=== PATIENT | female | born 1945 | race Caucasian/White ===

== ENCOUNTER 2017-11-25 07:36 | Inpatient (IN) | payer MEDICARE ==
[~2017-11-25] VITALS: Ht 188 cm; Wt 52.3 kg
[~2017-11-25 07:36] MED LIST: ALBU8.5H8 IH; CHOL10002 PO; CHOL2000 PO; PRED50TA PO; VITC500T PO; calcium PO
[2017-11-25] MEDS ORDERED: ipratropium/albuterol 3ml nebule NEB ONE (08:00)
[2017-11-25] MEDS ORDERED: methylPREDNISolone sod succ 125mg/2ml vial IV ONE (08:00)
[2017-11-25] MEDS: magnesium/D5W IVPB 100 ML IV SCH ×2 (08:16→09:18)
[2017-11-25 08:21] LABS: BASOPHILS % (AUTO) 0.1 % (0-1); EOSINOPHILS # (AUTO) 0.3 X10'3 (0-0.9); EOSINOPHILS % (AUTO) 4.9 % (0-6); HEMOGLOBIN 13.4 g/dl (12.0-16.0); LYMPHOCYTES # (AUTO) 0.2 X10'3 (1.1-4.8); LYMPHOCYTES % (AUTO) 3.7 % (21-51); MEAN CORPUSCULAR HEMOGLOBIN 33.3 PG (27.0-31.0); MEAN CORPUSCULAR HGB CONC 34.4 % (33.0-36.5); MEAN CORPUSCULAR VOLUME 96.7 FL (78-98); MEAN PLATELET VOLUME 7.5 FL (7.4-10.4); MONOCYTES # (AUTO) 0.5 X10'3 (0-0.9); NEUTROPHILS # (AUTO) 4.9 X10'3 (1.8-7.7); NEUTROPHILS % (AUTO) 82.3 % (42-75); PLATELET COUNT 207 X10'3 (140-440); RED BLOOD COUNT 4.04 X10'6 (4.20-5.60); RED CELL DISTRIBUTION WIDTH 13.6 % (11.5-14.5); WHITE BLOOD COUNT 5.9 X10'3 (4.5-11.0)
[2017-11-25 08:27] LABS: INR 0.9 INR; PARTIAL THROMBOPLASTIN TIME 32 SECONDS (22-32); PROTHROMBIN TIME 9.8 SECONDS (9.0-12.0)
[2017-11-25 08:40] LABS: ALANINE AMINOTRANSFERASE 26 U/L (12-78); ALBUMIN 3.1 G/DL (3.4-5.0); ALBUMIN/GLOBULIN RATIO 0.8 (1.1-1.5); ALKALINE PHOSPHATASE 66 IU/L (46-116); ANION GAP 6 (8-16); ASPARTATE AMINO TRANSFERASE 23 U/L (10-37); BILIRUBIN,TOTAL 0.7 MG/DL (0.1-1.0); BLOOD UREA NITROGEN 16 MG/DL (7-18); BUN/CREATININE RATIO 15.1 (6.6-38.0); CALCIUM 8.8 MG/DL (8.5-10.1); CHLORIDE 103 MMOL/L (99-107); CREATININE 1.06 MG/DL (0.40-0.90); GLUCOSE 84 MG/DL (70-104); SODIUM 141 MMOL/L (135-145); TOTAL CARBON DIOXIDE 31.6 MMOL/L (24-32); TOTAL PROTEIN 6.8 G/DL (6.4-8.2); eGFR 51 ML/MIN
[2017-11-25] MEDS ORDERED: azithromycin 250mg tablet PO ONE (09:20)
[2017-11-25] MEDS ORDERED: CefTRIAXone 2gm/D5W 50ml 50 ML IV ONE (09:20)
[2017-11-25] MEDS ORDERED: PRED20TA PO (10:27)
[2017-11-25] MEDS ORDERED: LEVO500T2 PO (10:27)
[2017-11-25] MEDS ORDERED: BENZ-16 PO (10:31)
[2017-11-25] MEDS ORDERED: albuterol 2.5 MG/3 ML nebule NEB ONE (11:05)
[2017-11-25] MEDS ORDERED: HYDROcodone/acetaminophen 10/325mg tab PO PRN (12:15)
[2017-11-25] MEDS ORDERED: ondansetron/PF 4mg/2ml inj IV PRN (12:15)
[2017-11-25] MEDS ORDERED: acetaminophen 325mg tablet PO PRN ×2 (12:15)
[2017-11-25] MEDS ORDERED: mag hydrox/Alum hydrox/simeth 30ml oral suspension PO PRN (12:15)
[2017-11-25] MEDS ORDERED: potassium Cl 20 mEq SR tablet PO PRN ×2 (12:15)
[2017-11-25] MEDS ORDERED: ipratropium/albuterol 3ml nebule NEB PRN (12:15)
[2017-11-25] MEDS ORDERED: potassium Cl 40MEQ/NS 500ml 500 ML IV PRN ×2 (12:15)
[2017-11-25] MEDS ORDERED: magnesium hydroxide 30ml (MOM) UD suspension PO PRN (12:15)
[2017-11-25] MEDS ORDERED: magnesium 4gm in 100ml NS 100 ML IV PRN (12:15)
[2017-11-25] MEDS ORDERED: magnesium 2GM in 50ml NS 50 ML IV PRN (12:15)
[2017-11-25] MEDS ORDERED: magnesium/D5W IVPB 100 ML IV PRN (12:30)
[2017-11-25 12:37] LABS: D-DIMER 0.53 MG/L FEU (0-0.50)
[2017-11-25] MEDS ORDERED: TIOT18CA3 IH (12:53)
[2017-11-25] MEDS ORDERED: FLUT1DIS4 INH (12:54)
[2017-11-25] MEDS ORDERED: PRED5TAB PO (12:56)
[2017-11-25] MEDS ORDERED: ALEN70TA48 PO (12:57)
[2017-11-25] MEDS ORDERED: CALC-642 PO (12:58)
[2017-11-25] MEDS ORDERED: MULT1TAB74 PO (12:59)
[2017-11-25] MEDS: methylPREDNISolone sod succ/PF 40mg inj. IV SCH ×2 (15:10→21:15)
[2017-11-25] MEDS ORDERED: non-formulary drug (Alendronate Sodium* (Fosamax*) 1 TABLET) PO SCH (15:45)
[2017-11-25 16:24] VITALS: BP 142/76
[2017-11-25 18:45] VITALS: BP 117/76
[2017-11-25] MEDS: calcium carbonate 500mg chew tablet PO SCH (20:00)
[2017-11-25] MEDS: lactobacillus rhamnosus 10,000 MMU CELLS/CAPSULE PO SCH (21:15)
[2017-11-25 23:15] VITALS: BP 117/72
[2017-11-26] MEDS: methylPREDNISolone sod succ/PF 40mg inj. IV SCH ×4 (02:17→21:16)
[2017-11-26 05:16] LABS: BASOPHILS % (AUTO) 0 % (0-1); EOSINOPHILS % (AUTO) 0 % (0-6); HEMATOCRIT 35.8 % (35.0-45.0); HEMOGLOBIN 12.3 g/dl (12.0-16.0); LYMPHOCYTES # (AUTO) 0.1 X10'3 (1.1-4.8); LYMPHOCYTES % (AUTO) 2.5 % (21-51); MEAN CORPUSCULAR HEMOGLOBIN 33.4 PG (27.0-31.0); MEAN CORPUSCULAR HGB CONC 34.4 % (33.0-36.5); MEAN PLATELET VOLUME 7.8 FL (7.4-10.4); MONOCYTES # (AUTO) 0.3 X10'3 (0-0.9); MONOCYTES % (AUTO) 4.3 % (2-12); NEUTROPHILS # (AUTO) 5.5 X10'3 (1.8-7.7); NEUTROPHILS % (AUTO) 93.2 % (42-75); PLATELET COUNT 225 X10'3 (140-440); RED BLOOD COUNT 3.69 X10'6 (4.20-5.60); RED CELL DISTRIBUTION WIDTH 13.7 % (11.5-14.5); WHITE BLOOD COUNT 5.9 X10'3 (4.5-11.0)
[2017-11-26 05:21] LABS: ALANINE AMINOTRANSFERASE 27 U/L (12-78); ALBUMIN 2.8 G/DL (3.4-5.0); ALBUMIN/GLOBULIN RATIO 0.8 (1.1-1.5); ALKALINE PHOSPHATASE 65 IU/L (46-116); ANION GAP 4 (8-16); ASPARTATE AMINO TRANSFERASE 25 U/L (10-37); BILIRUBIN,TOTAL 0.4 MG/DL (0.1-1.0); BLOOD UREA NITROGEN 22 MG/DL (7-18); BUN/CREATININE RATIO 21.6 (6.6-38.0); CALCIUM 8.9 MG/DL (8.5-10.1); CHLORIDE 103 MMOL/L (99-107); CREATININE 1.02 MG/DL (0.40-0.90); GLUCOSE 136 MG/DL (70-104); MAGNESIUM 2.6 MG/DL (1.5-2.4); POTASSIUM 4.6 MMOL/L (3.5-5.1); SODIUM 142 MMOL/L (135-145); TOTAL CARBON DIOXIDE 34.9 MMOL/L (24-32); TOTAL PROTEIN 6.4 G/DL (6.4-8.2); eGFR 53 ML/MIN
[2017-11-26 07:35] VITALS: BP 132/91
[2017-11-26] MEDS: CefTRIAXone/D5W-Rocephin 1gm 50 ML IV SCH (07:48)
[2017-11-26] MEDS: vitamin D (cholecalciferol) 1,000 unit tablet PO SCH (07:49)
[2017-11-26] MEDS: lactobacillus rhamnosus 10,000 MMU CELLS/CAPSULE PO SCH ×2 (07:49→21:16)
[2017-11-26] MEDS: calcium carbonate 500mg chew tablet PO SCH ×2 (07:50→20:00)
[2017-11-26] MEDS: multivitamins, therapeutics tablet PO SCH (07:50)
[2017-11-26] MEDS: ascorbic acid 500mg tablet PO SCH (07:50)
[2017-11-26] MEDS: enoxaparin 40mg/0.4ml syringe SQ SCH (07:52)
[2017-11-26] MEDS: K and/or MAG REPLACEMENT MC SCH (07:53)
[2017-11-26 11:59] VITALS: BP 128/74
[2017-11-26] MEDS ORDERED: LORazepam 0.5 MG tablet PO PRN (16:35)
[2017-11-26] MEDS ORDERED: AZAT50TA35 PO (17:52)
[2017-11-26 18:30] VITALS: BP 123/73
[2017-11-26 23:30] VITALS: BP 102/51
[2017-11-27] MEDS: methylPREDNISolone sod succ/PF 40mg inj. IV SCH ×2 (01:38→07:47)
[2017-11-27 05:31] LABS: ALANINE AMINOTRANSFERASE 41 U/L (12-78); ALBUMIN 2.8 G/DL (3.4-5.0); ALBUMIN/GLOBULIN RATIO 0.8 (1.1-1.5); ALKALINE PHOSPHATASE 57 IU/L (46-116); ANION GAP 3 (8-16); ASPARTATE AMINO TRANSFERASE 34 U/L (10-37); BILIRUBIN,TOTAL 0.3 MG/DL (0.1-1.0); BLOOD UREA NITROGEN 32 MG/DL (7-18); BUN/CREATININE RATIO 28.1 (6.6-38.0); CALCIUM 8.8 MG/DL (8.5-10.1); CHLORIDE 104 MMOL/L (99-107); CREATININE 1.14 MG/DL (0.40-0.90); GLUCOSE 141 MG/DL (70-104); MAGNESIUM 2.5 MG/DL (1.5-2.4); POTASSIUM 4.7 MMOL/L (3.5-5.1); SODIUM 141 MMOL/L (135-145); TOTAL CARBON DIOXIDE 33.6 MMOL/L (24-32); TOTAL PROTEIN 6.2 G/DL (6.4-8.2); eGFR 47 ML/MIN
[2017-11-27 05:32] LABS: BASOPHILS % (AUTO) 0 % (0-1); EOSINOPHILS % (AUTO) 0 % (0-6); HEMATOCRIT 35.2 % (35.0-45.0); HEMOGLOBIN 12.1 g/dl (12.0-16.0); LYMPHOCYTES # (AUTO) 0.1 X10'3 (1.1-4.8); LYMPHOCYTES % (AUTO) 1.2 % (21-51); MEAN CORPUSCULAR HEMOGLOBIN 33.6 PG (27.0-31.0); MEAN CORPUSCULAR HGB CONC 34.4 % (33.0-36.5); MEAN CORPUSCULAR VOLUME 97.9 FL (78-98); MEAN PLATELET VOLUME 7.8 FL (7.4-10.4); MONOCYTES # (AUTO) 0.3 X10'3 (0-0.9); MONOCYTES % (AUTO) 2.8 % (2-12); NEUTROPHILS # (AUTO) 10.3 X10'3 (1.8-7.7); PLATELET COUNT 249 X10'3 (140-440); RED CELL DISTRIBUTION WIDTH 13.7 % (11.5-14.5); WHITE BLOOD COUNT 10.7 X10'3 (4.5-11.0)
[2017-11-27 07:03] VITALS: BP 136/64
[2017-11-27] MEDS: CefTRIAXone/D5W-Rocephin 1gm 50 ML IV SCH (07:46)
[2017-11-27] MEDS: calcium carbonate 500mg chew tablet PO SCH (07:48)
[2017-11-27] MEDS: multivitamins, therapeutics tablet PO SCH (07:48)
[2017-11-27] MEDS: ascorbic acid 500mg tablet PO SCH (07:48)
[2017-11-27] MEDS: vitamin D (cholecalciferol) 1,000 unit tablet PO SCH (07:48)
[2017-11-27] MEDS: enoxaparin 40mg/0.4ml syringe SQ SCH (07:48)
[2017-11-27] MEDS: lactobacillus rhamnosus 10,000 MMU CELLS/CAPSULE PO SCH (07:48)
[2017-11-27] MEDS: K and/or MAG REPLACEMENT MC SCH (08:00)
[2017-11-27] MEDS ORDERED: LEVO750T46 PO (10:53)
[2017-11-27] MEDS ORDERED: PRED20TA PO (10:53)
[2017-11-27 11:05] VITALS: BP 112/50
== END 2017-11-27 12:33 | disposition home or self-care (01) | DRG 193 ==
LOC: ER 07:36 → ED HOLD 12:12 → EDBEDREQ 14:39 → SUR 3N 15:56
PROVIDERS: ADMIT Family Medicine; ATTEND Family Medicine
DX: J18.9 Pneumonia, unspecified organism (principal); J96.90 Respiratory failure, unspecified, unspecified whether with hypoxia or hypercapnia; J44.0 Chronic obstructive pulmonary disease with (acute) lower respiratory infection; J44.1 Chronic obstructive pulmonary disease with (acute) exacerbation; F41.9 Anxiety disorder, unspecified; N18.9 Chronic kidney disease, unspecified; Z82.49 Family history of ischemic heart disease and other diseases of the circulatory system; Z87.891 Personal history of nicotine dependence; Z79.52 Long term (current) use of systemic steroids; Z79.83 Long term (current) use of bisphosphonates; Z86.711 Personal history of pulmonary embolism; Z99.81 Dependence on supplemental oxygen
CPT/HCPCS: 36415; 71045; 80053; 83735; 83880; 84145; 84484; 85025; 85379; 85610; 85730; 87070; 93005; 94640; 94760; 97116; 97161; 97530; J0696; J1650; J2920; J2930; J7500

== ENCOUNTER 2018-08-08 11:49 | Inpatient (IN) | payer MEDICARE | END 2018-08-10 14:56 | disposition home or self-care (01) | LOC: ER 11:49 → ED HOLD 13:43 → SUR 3N 16:05 | DX: A41.9 Sepsis, unspecified organism (principal); J18.1 Lobar pneumonia, unspecified organism; J44.0 Chronic obstructive pulmonary disease with (acute) lower respiratory infection; M31.30 Wegener's granulomatosis without renal involvement; J44.9 Chronic obstructive pulmonary disease, unspecified ==